=== PATIENT | female | born 1970 | race African-American/Black ===

== ENCOUNTER 2022-03-19 12:54 | Emergency (ER) | payer OTHER ==
[2022-03-19 13:15] VITALS: BP 138/88; PULSE 69; RESP 20; TEMP 98.6; BMI 34.0
[2022-03-19] MEDS ORDERED: KETOROLAC TROMETHAMINE 30 MG/1 ML VIAL IM ONE (15:49)
[2022-03-19] MEDS ORDERED: KETOROLAC TROMETHAMINE 30 MG/1 ML VIAL ONE (16:30)
== END 2022-03-19 17:09 | disposition home or self-care (01) ==
LOC: JER 12:54
PROC: 3E023GC Introduction of Other Therapeutic Substance into Muscle, Percutaneous Approach (ICD-10-PCS; principal; 2022-03-19)
DX: R07.81 Pleurodynia (principal); M25.512 Pain in left shoulder; V18.2XXA Unspecified pedal cyclist injured in noncollision transport accident in nontraffic accident, initial encounter
CPT/HCPCS: 71046-TC-FY; 71101-TC-LT-FY; 73030-TC-LT-FY; 99284-25